=== PATIENT | male | born 1990 | race Caucasian/White ===

== ENCOUNTER 2023-12-04 09:36 | Emergency (ER) | payer OTHER ==
[~2023-12-04] VITALS: Ht 172.7 cm; Wt 78.1 kg
[2023-12-04 12:41] LABS: RSV AMPLIFICATION NEGATIVE (NEGATIVE)
[2023-12-04] MEDS ORDERED: AMOX875T2 PO (13:04)
[2023-12-04 13:13] VITALS: BP 138/81; TEMP 97.5; O2SAT 98
== END 2023-12-04 13:19 | disposition home or self-care (01) ==
LOC: M ED 09:36
DX: J21.9 Acute bronchiolitis, unspecified (principal); Z79.2 Long term (current) use of antibiotics

== ENCOUNTER 2024-03-24 11:33 | Emergency (ER) | payer OTHER ==
[~2024-03-24] VITALS: Ht 172.7 cm; Wt 74.4 kg
[~2024-03-24 11:33] MED LIST: AMOX875T2 PO
[2024-03-24 14:00] VITALS: BP 149/97; TEMP 97.5; O2SAT 99
[2024-03-24] MEDS ORDERED: NAPR-837 PO (15:39)
== END 2024-03-24 15:45 | disposition home or self-care (01) ==
LOC: M ED 11:33
DX: M75.82 Other shoulder lesions, left shoulder (principal)

== ENCOUNTER → 2024-05-27 | Outpatient (CLI) | payer OTHER ==
[~2024-05-27] MED LIST changes: +ISOVUE-300 61% 100ML VIAL As Ordered ONE; +LIDOCAINE 1% MDV 20ML VIAL As Ordered ONE; +NAPR-837 PO; +PROHANCE 279.3MG/ML 5ML VIAL As Ordered ONE
== END ==
LOC: M RAD 08:55
DX: M25.512 Pain in left shoulder (principal); S43.402A Unspecified sprain of left shoulder joint, initial encounter; X58.XXXA Exposure to other specified factors, initial encounter; Y92.9 Unspecified place or not applicable
CPT/HCPCS: 23350; 73223; 77002; A9576; Q9967

== ENCOUNTER 2024-11-18 10:03 | Day surgery (SDC) | payer OTHER ==
[~2024-11-18] VITALS: Ht 172.7 cm; Wt 82.2 kg
[~2024-11-18 10:03] MED LIST changes: -ISOVUE-300 61% 100ML VIAL As Ordered ONE; -LIDOCAINE 1% MDV 20ML VIAL As Ordered ONE; -PROHANCE 279.3MG/ML 5ML VIAL As Ordered ONE
[2024-11-18] MEDS ORDERED: MIDAZOLAM INJ 2MG/2ML VIAL As Ordered ONE (10:06)
[2024-11-18] MEDS ORDERED: fentaNYL 100 MCG/2 ML INJECTION As Ordered ONE (10:06)
[2024-11-18] MEDS ORDERED: KETOROLAC 60MG 2ML VIAL As Ordered ONE (10:07)
[2024-11-18] MEDS ORDERED: SUGAMMADEX SODIUM 500 MG/5 ML VIAL (BRIDION) As Ordered ONE (10:07)
[2024-11-18] MEDS ORDERED: LIDOCAINE 2% 100MG/5ML SDV (FOR ANES.) As Ordered ONE (10:07)
[2024-11-18] MEDS ORDERED: ONDANSETRON 4MG 2ML VIAL As Ordered ONE (10:07)
[2024-11-18] MEDS ORDERED: ROCURONIUM BROMIDE 50MG/5ML VIAL As Ordered ONE (10:07)
[2024-11-18] MEDS ORDERED: propofoL 200 MG/20 ML VIAL As Ordered ONE (10:08)
[2024-11-18] MEDS ORDERED: ACETAMINOPHEN 1000MG/100ML IV BAG As Ordered ONE (10:46)
[2024-11-18] MEDS ORDERED: dexAMETHasone 10MG/1ML VIAL PRES.FREE PN ONE (10:50)
[2024-11-18] MEDS ORDERED: LIDOCAINE 1% SDV 5ML VIAL PN ONE (10:50)
[2024-11-18] MEDS: ROPIvacaine 0.5% 30ML VIAL PN ONE (10:50)
[2024-11-18] MEDS ORDERED: LR 1,000 ML IV SCH (11:40)
[2024-11-18] MEDS: MIDAZOLAM INJ 2MG/2ML VIAL IV PRN (11:54)
[2024-11-18] MEDS: fentaNYL 100 MCG/2 ML INJECTION IV PRN (11:55)
[2024-11-18] MEDS: ceFAZolin SOD 2 GM in IV 1 EA IV ONE (12:36)
[2024-11-18] MEDS ORDERED: HYDROmorphone HCL 2MG/ML 1ML VIAL As Ordered ONE (12:52)
[2024-11-18] MEDS: TRANEXAMIC ACID 100 MG/ML 10ML VIAL As Ordered ONE (12:54)
[2024-11-18] MEDS ORDERED: ePHEDrine SULFATE 25 MG/5 ML(5MG/ML) SYRINGE As Ordered ONE (13:16)
[2024-11-18] MEDS: EPINEPHrine 1MG/ML INJ 30ML MD-VIAL As Ordered ONE (14:00)
[2024-11-18] MEDS: VANCOMYCIN 1000MG/20ML VIAL As Ordered ONE (14:00)
[2024-11-18] MEDS ORDERED: MORPHINE 2 MG/ML 1ML VIAL IV PRN (14:30)
[2024-11-18] MEDS ORDERED: oxyCODONE 5MG TAB PO PRN (14:30)
[2024-11-18] MEDS ORDERED: ONDANSETRON 4MG 2ML VIAL IV PRN (14:30)
[2024-11-18] MEDS ORDERED: fentaNYL 100 MCG/2 ML INJECTION IV PRN (14:30)
[2024-11-18 15:51] VITALS: BP 138/72; TEMP 97.4; O2SAT 99
== END 2024-11-18 16:06 | disposition home or self-care (01) ==
LOC: M SDC 10:03
PROVIDERS: ATTEND Orthopaedic Surgery
DX: S43.024A Posterior dislocation of right humerus, initial encounter (principal); X50.0XXA Overexertion from strenuous movement or load, initial encounter; Y93.89 Activity, other specified; Y92.84 Military training ground as the place of occurrence of the external cause; Z72.0 Tobacco use
CPT/HCPCS: 29807; C1713; J0131; J0171; J0690; J1100; J1171; J1885; J2250; J2405; J2795; J3010